=== PATIENT | female | born 1945 | race Caucasian/White ===

== ENCOUNTER 2018-12-07 14:18 | Outpatient (CLI) | payer MEDICARE ==
[~2018-12-07] VITALS: Ht 157.5 cm; Wt 84.4 kg
[2018-12-07] MEDS ORDERED: albuterol 2.5 MG/3 ML nebule NEB PRN (15:15)
== END 2018-12-07 23:59 | disposition home or self-care (01) ==
LOC: RT 14:18
PROVIDERS: ATTEND Internal Medicine Pulmonary Disease
DX: J45.909 Unspecified asthma, uncomplicated (principal); I51.7 Cardiomegaly; G47.33 Obstructive sleep apnea (adult) (pediatric); K21.9 Gastro-esophageal reflux disease without esophagitis; M85.80 Other specified disorders of bone density and structure, unspecified site; Z79.899 Other long term (current) drug therapy; Z87.891 Personal history of nicotine dependence
CPT/HCPCS: 71046; 94010; 94727; 94729

== ENCOUNTER 2023-08-03 11:47 | Emergency (ER) | payer MEDICARE, OTHER ==
[~2023-08-03] VITALS: Ht 154.9 cm; Wt 84.1 kg
[2023-08-03 11:58] VITALS: BP 174/126; PULSE 77; RESP 18; TEMP 97.7; O2SAT 95
[2023-08-03] MEDS ORDERED: cloNIDine 0.1 mg tablet PO ONE (12:45)
[2023-08-03 12:55] LABS: BASOPHILS # (AUTO) 0.1 X10'3 (0-0.2); BASOPHILS % (AUTO) 0.7 % (0-1); EOSINOPHILS # (AUTO) 0.2 X10'3 (0-0.9); HEMATOCRIT 46.5 % (35.0-45.0); HEMOGLOBIN 15.7 g/dl (12.0-16.0); LYMPHOCYTES # (AUTO) 2.7 X10'3 (1.1-4.8); LYMPHOCYTES % (AUTO) 24.3 % (21-51); MEAN CORPUSCULAR HEMOGLOBIN 29.3 PG (27.0-31.0); MEAN CORPUSCULAR HGB CONC 33.8 g/dL (33.0-36.5); MEAN CORPUSCULAR VOLUME 86.9 FL (78-98); MEAN PLATELET VOLUME 8.9 FL (7.4-10.4); MONOCYTES # (AUTO) 0.9 X10'3 (0-0.9); MONOCYTES % (AUTO) 8.1 % (2-12); NEUTROPHILS # (AUTO) 7.2 X10'3 (1.8-7.7); NEUTROPHILS % (AUTO) 64.9 % (42-75); PLATELET COUNT 254 X10'3 (140-440); RED BLOOD COUNT 5.35 X10'6 (4.20-5.60); RED CELL DISTRIBUTION WIDTH 13.8 % (11.5-14.5); WHITE BLOOD COUNT 11.1 X10'3 (4.5-11.0)
[2023-08-03 13:19] LABS: ALBUMIN 3.8 G/DL (3.4-5.0); ANION GAP 9 (8-16); BLOOD UREA NITROGEN 18 MG/DL (7-18); BUN/CREATININE RATIO 20.2 (10.0-20.0); CALCIUM 9.4 MG/DL (8.5-10.1); CHLORIDE 103 MMOL/L (99-107); CREATININE 0.89 MG/DL (0.40-0.90); GLUCOSE 100 MG/DL (70-104); POTASSIUM 3.6 MMOL/L (3.5-5.1); PRO BRAIN NATRIURETIC PEPTIDE 210 PG/ML (0-450); SODIUM 141 MMOL/L (135-145); TOTAL CARBON DIOXIDE 29.1 MMOL/L (24-32); eCRCL 41 ML/MIN; eGFR 62 ML/MIN
== END 2023-08-03 21:20 | disposition left against medical advice (07) ==
LOC: ER 11:48
DX: R07.81 Pleurodynia (principal); R06.02 Shortness of breath; Z53.21 Procedure and treatment not carried out due to patient leaving prior to being seen by health care provider
CPT/HCPCS: 36415; 70450; 71046; 71250; 80048; 83880; 84484; 85025; 93005; 99281

== ENCOUNTER 2023-10-18 02:26 | Emergency (ER) | payer MEDICARE, OTHER ==
[~2023-10-18] VITALS: Ht 154.9 cm; Wt 79.5 kg
[~2023-10-18 02:26] MED LIST: ASPI-1265 PO; CHLO25TA10 PO; CLOP75TA34 PO; LOSA100T58 PO; NEBI5TAB12 PO; OXCA150T14 PO
[2023-10-18] MEDS: haloperidol 5mg tablet PO ONE ×2 (02:54→04:22)
[2023-10-18] MEDS: oxymetazoline 15 ML nasal spray NS ONE (02:55)
[2023-10-18] MEDS: ondansetron 4mg rapidly disintigrating tab PO ONE (02:55)
[2023-10-18] MEDS: tranexamic acid 100mg/ml inj. TP ONE (03:31)
[2023-10-18] MEDS: hyDRALAzine 10mg tablet PO ONE (04:22)
[2023-10-18] MEDS: LIDOcaine 2% Viscous 15ml cup MM ONE ×2 (04:33→06:29)
[2023-10-18] MEDS ORDERED: CLIN150C2 PO (06:29)
[2023-10-18] MEDS ORDERED: tranexamic acid 100mg/ml inj. IV ONE (07:55)
[2023-10-18] MEDS: morphine 2 MG/ML inj. syringe IV ONE (08:11)
[2023-10-18] MEDS: ondansetron/PF 4mg/2ml inj IV ONE (08:11)
[2023-10-18] MEDS: tranexamic acid inj. 800 MG in normal saline 100ml IV soln 92 ML IV ONE (08:30)
[2023-10-18] MEDS: LIDOcaine 1% W/epiNEPHrine 1:100,000 20ml vial SQ ONE (09:02)
[2023-10-18 11:39] LABS: HEMATOCRIT 40.3 % (35.0-45.0); HEMOGLOBIN 13.5 g/dl (12.0-16.0); MEAN CORPUSCULAR HEMOGLOBIN 29.5 PG (27.0-31.0); MEAN CORPUSCULAR HGB CONC 33.4 g/dL (33.0-36.5); MEAN CORPUSCULAR VOLUME 88.5 FL (78-98); PLATELET COUNT 315 X10'3 (140-440); RED BLOOD COUNT 4.56 X10'6 (4.20-5.60); RED CELL DISTRIBUTION WIDTH 14.1 % (11.5-14.5); WHITE BLOOD COUNT 13.5 X10'3 (4.5-11.0)
[2023-10-18] MEDS ORDERED: TRAN650T5 PO (14:25)
[2023-10-18 14:47] VITALS: BP 172/89; PULSE 68; RESP 14; TEMP 98.2; O2SAT 92
== END 2023-10-18 14:49 | disposition home or self-care (01) ==
LOC: ER 02:27
DX: R04.0 Epistaxis (principal); Z79.82 Long term (current) use of aspirin; Z79.899 Other long term (current) drug therapy; Z88.2 Allergy status to sulfonamides
CPT/HCPCS: 30901; 36415; 82948; 85027; 96374; 96375; 99285; A6402; J2270; J2405; J7030; A6449

== ENCOUNTER 2023-12-18 16:58 | Inpatient (IN) | payer MEDICARE, OTHER ==
[~2023-12-18] VITALS: Ht 167.6 cm; Wt 79.0 kg
[~2023-12-18 16:58] MED LIST changes: +AMLO2.5T2 PO; -CHLO25TA10 PO; +CLON0.2T PO; +NEBI20TA6 PO; -NEBI5TAB12 PO; -OXCA150T14 PO
[2023-12-18 17:45] LABS: BASOPHILS # (AUTO) 0.1 X10'3 (0-0.2); BASOPHILS % (AUTO) 0.7 % (0-1); EOSINOPHILS % (AUTO) 0.2 % (0-6); HEMATOCRIT 47.1 % (35.0-45.0); HEMOGLOBIN 15.6 g/dl (12.0-16.0); LYMPHOCYTES # (AUTO) 3.6 X10'3 (1.1-4.8); LYMPHOCYTES % (AUTO) 19.3 % (21-51); MEAN CORPUSCULAR HGB CONC 33.1 g/dL (33.0-36.5); MEAN CORPUSCULAR VOLUME 87.7 FL (78-98); MEAN PLATELET VOLUME 9.6 FL (7.4-10.4); MONOCYTES # (AUTO) 2.3 X10'3 (0-0.9); MONOCYTES % (AUTO) 12.2 % (2-12); NEUTROPHILS # (AUTO) 12.7 X10'3 (1.8-7.7); NEUTROPHILS % (AUTO) 67.6 % (42-75); PLATELET COUNT 218 X10'3 (140-440); RED BLOOD COUNT 5.37 X10'6 (4.20-5.60); RED CELL DISTRIBUTION WIDTH 14.5 % (11.5-14.5); WHITE BLOOD COUNT 18.8 X10'3 (4.5-11.0)
[2023-12-18 17:47] LABS: ALBUMIN 3.6 G/DL (3.4-5.0); ANION GAP 12 (8-16); BLOOD UREA NITROGEN 21 MG/DL (7-18); BUN/CREATININE RATIO 20.6 (10.0-20.0); CALCIUM 9.2 MG/DL (8.5-10.1); CHLORIDE 103 MMOL/L (99-107); CREATININE 1.02 MG/DL (0.40-0.90); GLUCOSE 115 MG/DL (70-104); POTASSIUM 4.1 MMOL/L (3.5-5.1); SODIUM 142 MMOL/L (135-145); eCRCL 43 ML/MIN; eGFR 53 ML/MIN
[2023-12-18 17:51] LABS: APTT 26 SECONDS (22-32); INR 1.1 INR; PROTHROMBIN TIME 11.7 SECONDS (9.0-12.0)
[2023-12-18 18:01] LABS: BILIRUBIN,URINE NEGATIVE (Neg); CLARITY,URINE CLEAR (Clear); COLOR,URINE YELLOW (Yellow); GLUCOSE, URINE NEGATIVE (Neg); KETONES,URINE NEGATIVE (Neg); LEUKOCYTE ESTERASE ,URINE NEGATIVE (Neg); NITRITES, URINE NEGATIVE (Neg); OCCULT BLOOD,URINE SMALL (Neg); PROTEIN,URINE NEGATIVE (Neg); UROBILINOGEN,URINE 0.2 E.U/dL (0.2-1.0)
--- NOTE | 2023-12-18 18:03 | NUR ---
patient felt warm, did a rectal temperature and found her to be 100.6. With this new temperature the patient meets criteria for SIRS.
[2023-12-18 18:05] LABS: UA COLLECTION TYPE OTHER
[2023-12-18 18:06] LABS: AMORPHOUS URATES 1+; BACTERIA,URINE FEW /HPF (Neg); MUCUS STRANDS NONE SEEN /LPF (Neg); SQUAMOUS EPITHELIAL CELL,UR NONE SEEN /LPF (FEW)
--- NOTE | 2023-12-18 19:07 | NUR ---
pt to CT
--- NOTE | 2023-12-18 19:38 | NUR ---
Pt at bedside. Pt immediately recognized . Is able to state who he is and smiled at him. Smile noted to be equal without deficits.
[2023-12-18] MEDS: amLODIPine 5mg tablet PO ONE (20:30)
[2023-12-18] MEDS ORDERED: magnesium sulf-water 2g/50mL 50 ML IV PRN (20:40)
[2023-12-18] MEDS ORDERED: acetaminophen 325mg tablet PO PRN (20:40)
[2023-12-18] MEDS ORDERED: potassium Cl 20 mEq SR tablet PO PRN (20:40)
[2023-12-18] MEDS ORDERED: magnesium hydroxide 30ml (MOM) UD suspension PO PRN (20:40)
[2023-12-18] MEDS ORDERED: magnesium Cl slow-release 64mg tablet PO PRN (20:40)
[2023-12-18] MEDS ORDERED: potassium Cl 40MEQ/1/2NS 520ml 520 ML IV PRN (20:40)
[2023-12-18] MEDS ORDERED: magnesium sulf-water 4G/100mL 100 ML IV PRN (20:40)
[2023-12-18] MEDS ORDERED: mag hydrox/Alum hydrox/simeth 30ml oral suspension PO PRN (20:40)
[2023-12-18 21:45] VITALS: BP 127/98; PULSE 87; RESP 16; TEMP 97.9; O2SAT 94
[2023-12-18] MEDS: ringers solution, lacted 1,000 ML IV ONE (21:45)
[2023-12-18] MEDS: cloNIDine 0.1 mg tablet PO SCH (21:45)
[2023-12-18 21:54] LABS: MAGNESIUM 2.1 MG/DL (1.5-2.4); PHOSPHORUS 3.3 MG/DL (2.3-4.5)
[2023-12-19] VITALS (11 sets, daily range): BP systolic 126–156; BP diastolic 80–110; PULSE 77–89; RESP 14–24; TEMP 96.9–98.2; O2SAT 83–97
[2023-12-19] MEDS: CefTRIAXone/D5W-Rocephin 1gm 50 ML IV SCH (00:11)
[2023-12-19] MEDS: normal saline 1000ml 1,000 ML IV SCH (00:11)
[2023-12-19] MEDS: clopidogrel 75mg tablet PO SCH (00:13)
[2023-12-19] MEDS: atorvastatin 20mg tablet PO SCH (00:16)
[2023-12-19 06:35] LABS: BASOPHILS # (AUTO) 0.1 X10'3 (0-0.2); BASOPHILS % (AUTO) 0.7 % (0-1); EOSINOPHILS % (AUTO) 0.3 % (0-6); HEMATOCRIT 47.7 % (35.0-45.0); HEMOGLOBIN 15.7 g/dl (12.0-16.0); LYMPHOCYTES # (AUTO) 2.7 X10'3 (1.1-4.8); LYMPHOCYTES % (AUTO) 16.3 % (21-51); MEAN CORPUSCULAR HEMOGLOBIN 28.5 PG (27.0-31.0); MEAN CORPUSCULAR VOLUME 86.5 FL (78-98); MEAN PLATELET VOLUME 9.8 FL (7.4-10.4); MONOCYTES # (AUTO) 2.2 X10'3 (0-0.9); MONOCYTES % (AUTO) 13.1 % (2-12); NEUTROPHILS # (AUTO) 11.7 X10'3 (1.8-7.7); NEUTROPHILS % (AUTO) 69.6 % (42-75); PLATELET COUNT 219 X10'3 (140-440); RED BLOOD COUNT 5.51 X10'6 (4.20-5.60); RED CELL DISTRIBUTION WIDTH 14.8 % (11.5-14.5); WHITE BLOOD COUNT 16.8 X10'3 (4.5-11.0)
--- NOTE | 2023-12-19 06:40 | NUR ---
ASSUMED CARE OF PATIENT AT 214 FROM ED AFTER RC'G VERBAL REPORT FROM AMANDA GODFREY. PATIENT UNCOOPERATIVE/NOT ABLE TO FOLLOW COMMANDS FOR NEURO CHECK. MINIMAL IMPAIRMENT WITH FINGER TO NOSE, UNABLE TO HOLD ARMS UP AND MODERATE IMPAIRMENT WITH HEEL/CORBETT TEST. TOOK A LOT OF COAXING AND REPETITION TO HAVE PATIENT PERFORM TASKS. LS FACIAL DROOP NOTED AND RSW AND RAM CAR OPERATOR NOTED. REPORT GIVEN TO EARLY SHIFT RN, JOHNNY AND IS AWARE OF NPO STATUS, BUT DID GET PATIENT TO TAKE PLAVIX LAST NIGHT WITH A SMALL AMOUNT OF APPLESAUCE AND REPEATED ENCOURAGEMENT.
[2023-12-19 06:53] LABS: ALANINE AMINOTRANSFERASE 20 U/L (12-78); ALBUMIN 3.2 G/DL (3.4-5.0); ALBUMIN/GLOBULIN RATIO 0.8 (1.1-1.5); ALKALINE PHOSPHATASE 76 IU/L (46-116); ANION GAP 11 (8-16); ASPARTATE AMINO TRANSFERASE 17 U/L (10-37); BILIRUBIN,TOTAL 0.8 MG/DL (0.1-1.0); BLOOD UREA NITROGEN 24 MG/DL (7-18); BUN/CREATININE RATIO 31.2 (10.0-20.0); CALCIUM 9.1 MG/DL (8.5-10.1); CHLORIDE 103 MMOL/L (99-107); CREATININE 0.77 MG/DL (0.40-0.90); GLUCOSE 120 MG/DL (70-104); POTASSIUM 3.6 MMOL/L (3.5-5.1); SODIUM 140 MMOL/L (135-145); TOTAL CARBON DIOXIDE 25.8 MMOL/L (24-32); TOTAL PROTEIN 7.4 G/DL (6.4-8.2); eCRCL 57 ML/MIN; eGFR 73 ML/MIN
[2023-12-19] MEDS: K and/or MAG REPLACEMENT MC SCH (08:00)
[2023-12-19] MEDS: enoxaparin 40mg/0.4ml syringe SQ SCH (08:46)
[2023-12-19] MEDS: aspirin 81mg tab.chew PO SCH (08:52)
[2023-12-19] MEDS: metoprolol tartrate 50mg tablet PO SCH (08:52)
[2023-12-19] MEDS: losartan 50mg tablet PO SCH (08:53)
--- NOTE | 2023-12-19 09:00 | NUR ---
PATIENT REFUSED SUPPOSITORY AT THIS TIME .
[2023-12-19] MEDS: ondansetron/PF 4mg/2ml inj IV PRN (10:22)
--- NOTE | 2023-12-19 11:24 | NUR ---
PT AT BEDSIDE WHEN I ENTERED ROOM. PTS EYES WERE CLOSED. DID OPEN EYES WHEN NAME CALLED. CALLED ME BY NAME, I HAD VISITED WITH PT 2 DAYS PRIOR DURING STAY HERE. PT IS PALE AND LETHARGIC. ABLE TO MOVE ALL EXT, HOWEVER, NOT LIFT LEFT ARM OR LEG OFF BED WITHOUT ASSISTANCE. GENERALLY WEAK. ON NC AT 3L PT WITH h/O SLEEP APNEA. NIH IS 11. SPOKE WITH DR ALONZO.
--- NOTE | 2023-12-19 12:59 | NUR ---
pATIENT 97% ON 2L NASAL CANNULA WHEN AWAKE. WHEN PATIENT IS SLEEPING PATIENT SPO2 DROPS LOW 83%. PT BACK ON 2L NASAL CANNULA WHILE SLEEPING
--- NOTE | 2023-12-19 16:30 | NUR ---
NOTIFIED MD OF PATIENTS CHANGE IN CONDITION. PT FAILED NURSING BEDSIDE SWALLOW. MD INSTRUCTED PRIMARY RN TO REATTEMPT BEDSIDE SWALLOW. PT FAILED 2ND ATTEMPT AT BEDSIDE SWALLOW. PER MD, PT IS TO BE NPO AND REPEAT CT
--- NOTE | 2023-12-19 17:22 | NUR ---
PER NURSING IMPORT/[facility] SPECIALIST MRI SERVICES ARE AVAILABLE TOMORROW 12/20/23.
--- NOTE | 2023-12-19 19:00 | NUR ---
pt O2 desat to mid 80's with 1L. have pt deep breathe and cough. pt was hard time coughing. o2 fluctuates high 80's to mid 90's with 4L NC.
--- NOTE | 2023-12-19 19:20 | NUR ---
DISCUSSED WITH DR. TODD REGARDING PTS INCREASED O2 DEMANDS AND NPO STATUS AND CONSTIPATION. DR ORDERED CXR, ASPIRIN SUPP AND DULCOLAX.
[2023-12-19] MEDS ORDERED: iohexol 350MG/ML 100ml bottle IV ONE (19:23)
[2023-12-19] MEDS ORDERED: aspirin 300mg supp.rect RC ONE (20:05)
--- NOTE | 2023-12-19 20:20 | NUR ---
PHARMACY NOTIFIED US THAT THERE IS NO ASPIRIN SUPP AVAILABLE. NOTIFIED MD THAT NO ASPIRIN SUPP AND ASKED IF PT HAS METOPROLOL TONIGHT WITH SBP 150'S. NO METOPROLOL NEEDED TONIGHT PER MD.
--- NOTE | 2023-12-19 20:35 | NUR ---
PT WAS ABLE TO TAKE NECTOR THICK WATER WITHOUT COUGHING/CHOKING. ADMINISTERED CRUSHED PLAVIX WITH APPLE SAUCE.
[2023-12-19] MEDS: bisacodyl 10mg suppository rectal RC STA (20:51)
[2023-12-20] VITALS (8 sets, daily range): BP systolic 123–168; BP diastolic 80–106; PULSE 83–89; RESP 15–24; TEMP 97.3–98.6; O2SAT 92–97
[2023-12-20 02:19] LABS: BASOPHILS # (AUTO) 0.1 X10'3 (0-0.2); BASOPHILS % (AUTO) 0.7 % (0-1); EOSINOPHILS # (AUTO) 0.1 X10'3 (0-0.9); EOSINOPHILS % (AUTO) 0.5 % (0-6); HEMATOCRIT 45.1 % (35.0-45.0); LYMPHOCYTES # (AUTO) 1.9 X10'3 (1.1-4.8); LYMPHOCYTES % (AUTO) 13.1 % (21-51); MEAN CORPUSCULAR HEMOGLOBIN 28.9 PG (27.0-31.0); MEAN CORPUSCULAR HGB CONC 33.2 g/dL (33.0-36.5); MEAN CORPUSCULAR VOLUME 87.2 FL (78-98); MONOCYTES # (AUTO) 1.9 X10'3 (0-0.9); MONOCYTES % (AUTO) 12.7 % (2-12); NEUTROPHILS # (AUTO) 10.7 X10'3 (1.8-7.7); PLATELET COUNT 203 X10'3 (140-440); RED BLOOD COUNT 5.17 X10'6 (4.20-5.60); RED CELL DISTRIBUTION WIDTH 14.5 % (11.5-14.5); WHITE BLOOD COUNT 14.7 X10'3 (4.5-11.0)
[2023-12-20 02:48] LABS: ALANINE AMINOTRANSFERASE 21 U/L (12-78); ALBUMIN 2.9 G/DL (3.4-5.0); ALBUMIN/GLOBULIN RATIO 0.7 (1.1-1.5); ALKALINE PHOSPHATASE 71 IU/L (46-116); ANION GAP 11 (8-16); ASPARTATE AMINO TRANSFERASE 17 U/L (10-37); BILIRUBIN,TOTAL 0.7 MG/DL (0.1-1.0); BLOOD UREA NITROGEN 21 MG/DL (7-18); BUN/CREATININE RATIO 24.7 (10.0-20.0); CALCIUM 8.8 MG/DL (8.5-10.1); CHLORIDE 106 MMOL/L (99-107); CREATININE 0.85 MG/DL (0.40-0.90); GLUCOSE 108 MG/DL (70-104); POTASSIUM 3.6 MMOL/L (3.5-5.1); SODIUM 141 MMOL/L (135-145); TOTAL CARBON DIOXIDE 24.4 MMOL/L (24-32); TOTAL PROTEIN 7.1 G/DL (6.4-8.2); eCRCL 52 ML/MIN; eGFR 65 ML/MIN
--- NOTE | 2023-12-20 06:15 | NUR ---
I agree with keyanna Daugherty's assessment and interventions.
[2023-12-20] MEDS: losartan 50mg tablet PO SCH (07:18)
[2023-12-20] MEDS: amLODIPine 5mg tablet PO SCH (07:18)
[2023-12-20] MEDS ORDERED: hyDRALAzine 10mg tablet PO PRN (09:20)
--- NOTE | 2023-12-20 16:15 | NUR ---
Low lissette consult: Pt presents with a low lissette score of 12 per [facility]. Per RN physical assessment pt's skin is intact. Will continue to monitor and make recommendations as appropriate. Addendum: 12/20/23 at [address] Amended: Links added.
--- NOTE | 2023-12-20 18:00 | NUR ---
Report Received from Carolee GODFREY, Assumed care of Pt
[2023-12-21 06:07] LABS: BASOPHILS # (AUTO) 0.1 X10'3 (0-0.2); BASOPHILS % (AUTO) 0.8 % (0-1); EOSINOPHILS # (AUTO) 0.2 X10'3 (0-0.9); EOSINOPHILS % (AUTO) 1.5 % (0-6); HEMATOCRIT 43.4 % (35.0-45.0); HEMOGLOBIN 14.6 g/dl (12.0-16.0); LYMPHOCYTES # (AUTO) 2.2 X10'3 (1.1-4.8); MEAN CORPUSCULAR HEMOGLOBIN 29.7 PG (27.0-31.0); MEAN CORPUSCULAR HGB CONC 33.7 g/dL (33.0-36.5); MEAN CORPUSCULAR VOLUME 88.1 FL (78-98); MEAN PLATELET VOLUME 10.2 FL (7.4-10.4); MONOCYTES # (AUTO) 1.4 X10'3 (0-0.9); MONOCYTES % (AUTO) 12.5 % (2-12); NEUTROPHILS # (AUTO) 7.1 X10'3 (1.8-7.7); NEUTROPHILS % (AUTO) 65.2 % (42-75); PLATELET COUNT 220 X10'3 (140-440); RED BLOOD COUNT 4.92 X10'6 (4.20-5.60); RED CELL DISTRIBUTION WIDTH 14.7 % (11.5-14.5); WHITE BLOOD COUNT 10.8 X10'3 (4.5-11.0)
--- NOTE | 2023-12-21 06:33 | NUR ---
Patient in room [facility]TH[facility] 4016. I have received report from BEKAH Lyons and had the opportunity to ask questions and assume patient care.
[2023-12-21 06:39] LABS: ALANINE AMINOTRANSFERASE 30 U/L (12-78); ALBUMIN 2.7 G/DL (3.4-5.0); ALBUMIN/GLOBULIN RATIO 0.7 (1.1-1.5); ALKALINE PHOSPHATASE 89 IU/L (46-116); ANION GAP 9 (8-16); ASPARTATE AMINO TRANSFERASE 31 U/L (10-37); BILIRUBIN,TOTAL 0.6 MG/DL (0.1-1.0); BLOOD UREA NITROGEN 21 MG/DL (7-18); BUN/CREATININE RATIO 31.8 (10.0-20.0); CALCIUM 8.9 MG/DL (8.5-10.1); CHLORIDE 105 MMOL/L (99-107); CREATININE 0.66 MG/DL (0.40-0.90); GLUCOSE 103 MG/DL (70-104); SODIUM 141 MMOL/L (135-145); TOTAL CARBON DIOXIDE 26.9 MMOL/L (24-32); TOTAL PROTEIN 6.7 G/DL (6.4-8.2); eCRCL 67 ML/MIN; eGFR 87 ML/MIN
[2023-12-21 06:53] VITALS: BP 187/105; PULSE 85; RESP 16; TEMP 97.8; O2SAT 91
--- NOTE | 2023-12-21 07:28 | NUR ---
PAGER ID: [phone] MESSAGE: [id number]-Cori Barajas pt critical K 3.0 Will replace per protocol. Also BP is 187/105 per blue celina cons target bp <220/120. ok to allow permissive htn?- Chirag [phone]
[2023-12-21] MEDS: potassium Cl 20 mEq SR tablet PO PRN (07:38)
--- NOTE | 2023-12-21 07:44 | NUR ---
Received call back from Dr. Shereen hendrickson to give BP meds as permissive HTN is for only 24 hours.
[2023-12-21 07:50] VITALS: RESP 16; O2SAT 91
[2023-12-21] MEDS: losartan 50mg tablet PO SCH (07:58)
[2023-12-21] MEDS: amLODIPine 5mg tablet PO SCH (07:58)
[2023-12-21 10:00] VITALS: BP 144/86; PULSE 80; RESP 18; TEMP 98.4; O2SAT 92
--- NOTE | 2023-12-21 13:40 | NUR ---
PRESSURE ULCER EDUCATION: DEFINITION: A pressure ulcer is an area of skin that breaks down when you stay in one position too long. The constant pressure against the skin reduces the blood flow to that area and the affected tissue dies. CAUSES: "Being bedridden or in a wheelchair "Fragile skin "Having a chronic condition, such as diabetes or vascular disease "Inability to move certain parts of your body without assistance "Older age "Incontinence of urine or stool SYMPTOMS: "A reddened area that DOES NOT turn white when pressed on - this can be the beginning of a pressure ulcer "A blister, deep sore or a crater - these can be advanced pressure ulcers FIRST AID: "Relieve the pressure on this area "Keep the area clean and dry "Call your primary doctor if you see any of the above symptoms "DO NOT massage the area "DO NOT use a donut shaped or ring shaped pillow- these actually interfere with the blood flow and cause complications PREVENTION: "Check for pressure ulcers everyday "Change position at least every two hours to relieve pressure "Use items that help relieve pressure- pillows, sheepskin, foam padding, and powders. "Keep skin clean and dry "Eat healthy well balanced meals "Exercise daily IF YOU SEE ANY OF THESE SYMPTOMS WHILE IN THE HOSPITAL - TELL YOUR NURSE IMMEDIATELY. IF YOU SEE ANY OF THESE SYMPTOMS WHILE AT HOME OR HAVE ANY QUESTIONS OR CONCERNS ABOUT PRESSURE ULCERS - CALL YOUR PRIMARY DOCTOR IMMEDIATELY. Addendum: 12/21/23 at 1340 by Sae Ford RN Amended: Links added.
--- NOTE | 2023-12-21 15:34 | NUR ---
Report called to SONIA Batista at [facility].
--- NOTE | 2023-12-21 15:47 | NUR ---
patient refuses pneumovac states she is current.
[2023-12-21] MEDS: pneumococcal 23-VAL P-sac vacc 25 mcg/0.5ml vial IMVAC ONE (15:54)
--- NOTE | 2023-12-21 17:20 | NUR ---
Patient discharged to [facility] in [facility] with all personal belongings accompanied by [employer] staff and patient's . Patient was alert and oriented in no apparent acute distress at time of dc.
== END 2023-12-21 17:20 | DRG 64 ==
LOC: ER 16:59 → UNDOADMIN 20:32 → ORTHO 4S 20:32
PROVIDERS: ADMIT Internal Medicine Critical Care Medicine; ATTEND Internal Medicine
PROC: B3251ZZ Computerized Tomography (CT Scan) of Bilateral Common Carotid Arteries using Low Osmolar Contrast (ICD-10-PCS; principal; 2023-12-19)
PROC: B32G1ZZ Computerized Tomography (CT Scan) of Bilateral Vertebral Arteries using Low Osmolar Contrast (ICD-10-PCS; 2023-12-19)
PROC: B32R1ZZ Computerized Tomography (CT Scan) of Intracranial Arteries using Low Osmolar Contrast (ICD-10-PCS; 2023-12-19)
PROC: B3281ZZ Computerized Tomography (CT Scan) of Bilateral Internal Carotid Arteries using Low Osmolar Contrast (ICD-10-PCS; 2023-12-19)
PROC: 5A09357 Assistance with Respiratory Ventilation, Less than 24 Consecutive Hours, Continuous Positive Airway Pressure (ICD-10-PCS; 2023-12-20)
DX: I63.9 Cerebral infarction, unspecified (principal); G93.41 Metabolic encephalopathy; N17.0 Acute kidney failure with tubular necrosis; N39.0 Urinary tract infection, site not specified; G82.20 Paraplegia, unspecified; E86.0 Dehydration; I10 Essential (primary) hypertension; Z88.1 Allergy status to other antibiotic agents; Z88.2 Allergy status to sulfonamides; Z88.8 Allergy status to other drugs, medicaments and biological substances; Z79.899 Other long term (current) drug therapy
CPT/HCPCS: 36415; 70450; 70496; 70498; 70544; 70551; 71045; 74176; 80048; 80053; 81001; 83735; 84100; 84145; 85025; 85610; 85730; 87077; 87081; 87088; 87186; 92508; 92616; 93005; 97110; 97161; 97530; 99285; G0378; J0696; J1650; J2405; J7030; Q9967

== ENCOUNTER 2024-01-13 13:58 | Emergency (ER) | payer MEDICARE, OTHER ==
[~2024-01-13] VITALS: Ht 152.4 cm; Wt 88.0 kg
[2024-01-13 15:05] LABS: BASOPHILS # (AUTO) 0.1 X10'3 (0-0.2); BASOPHILS % (AUTO) 0.7 % (0-1); EOSINOPHILS # (AUTO) 0.2 X10'3 (0-0.9); EOSINOPHILS % (AUTO) 2.7 % (0-6); HEMATOCRIT 42.4 % (35.0-45.0); LYMPHOCYTES # (AUTO) 1.7 X10'3 (1.1-4.8); LYMPHOCYTES % (AUTO) 18.3 % (21-51); MEAN CORPUSCULAR HGB CONC 33.1 g/dL (33.0-36.5); MEAN CORPUSCULAR VOLUME 84.7 FL (78-98); MEAN PLATELET VOLUME 9.5 FL (7.4-10.4); MONOCYTES # (AUTO) 1.2 X10'3 (0-0.9); NEUTROPHILS # (AUTO) 6.1 X10'3 (1.8-7.7); NEUTROPHILS % (AUTO) 65.3 % (42-75); PLATELET COUNT 239 X10'3 (140-440); RED BLOOD COUNT 5.01 X10'6 (4.20-5.60); RED CELL DISTRIBUTION WIDTH 15.1 % (11.5-14.5); WHITE BLOOD COUNT 9.3 X10'3 (4.5-11.0)
[2024-01-13 15:24] LABS: D-DIMER 1.27 MG/L FEU (0-0.50)
[2024-01-13 15:33] LABS: ALBUMIN 2.9 G/DL (3.4-5.0); ANION GAP 9 (8-16); BLOOD UREA NITROGEN 15 MG/DL (7-18); BUN/CREATININE RATIO 18.5 (10.0-20.0); CHLORIDE 103 MMOL/L (99-107); CREATININE 0.81 MG/DL (0.40-0.90); GLUCOSE 113 MG/DL (70-104); MAGNESIUM 2.1 MG/DL (1.5-2.4); POTASSIUM 3.6 MMOL/L (3.5-5.1); PRO BRAIN NATRIURETIC PEPTIDE 259 PG/ML (0-450); SODIUM 138 MMOL/L (135-145); TOTAL CARBON DIOXIDE 26.5 MMOL/L (24-32); eCRCL 42 ML/MIN; eGFR 69 ML/MIN
[2024-01-13] MEDS ORDERED: iohexol 350MG/ML 100ml bottle IV ONE (16:08)
[2024-01-13] MEDS: normal saline 1000ML IV soln IVB ONE (16:24)
[2024-01-13 17:20] VITALS: PULSE 59
[2024-01-13 18:28] VITALS: BP 153/90; RESP 16; TEMP 98.7; O2SAT 96
== END 2024-01-13 19:00 | disposition home or self-care (01) ==
LOC: ER 13:59
DX: R55 Syncope and collapse (principal); Z88.2 Allergy status to sulfonamides; Z79.899 Other long term (current) drug therapy; Z79.82 Long term (current) use of aspirin
CPT/HCPCS: 36415; 71045; 71275; 80048; 83735; 83880; 84484; 85025; 85379; 93005; 96360; 99285; A4615; J7030; Q9967

== ENCOUNTER 2025-03-26 10:02 | Day surgery (SDC) | payer MEDICARE, OTHER ==
[2025-03-26] VITALS (7 sets, daily range): BP systolic 123–173; BP diastolic 71–125; PULSE 67–93; RESP 10–15; TEMP 97.2; O2SAT 94–99
[~2025-03-26] VITALS: Ht 152.4 cm; Wt 74.8 kg
[~2025-03-26 10:02] MED LIST changes: +AMLO-708 PO; -AMLO2.5T2 PO; +ATOR-2 PO; -CLON0.2T PO; +CLON0.2T37 PO; -CLOP75TA34 PO; +ESCI5TAB16 PO; -LOSA100T58 PO; -NEBI20TA6 PO; +NITR50CA PO; +PANT-47 PO; +TICA60TA PO; +VALS160T2 PO; +VALS80TA32 PO; +simethicone 40mg/0.6ml oral drops 15ml PO ONE
[2025-03-26] MEDS: ringers solution, lacted 1,000 ML IV SCH (11:14)
[2025-03-26] MEDS ORDERED: propofol inj 20 ML IV ONE ×2 (13:14)
== END 2025-03-26 14:30 | disposition home or self-care (01) ==
LOC: PAS 10:02
PROVIDERS: ATTEND Internal Medicine Gastroenterology
DX: Z12.11 Encounter for screening for malignant neoplasm of colon (principal); I10 Essential (primary) hypertension; E78.5 Hyperlipidemia, unspecified; I48.0 Paroxysmal atrial fibrillation; J45.909 Unspecified asthma, uncomplicated; G47.33 Obstructive sleep apnea (adult) (pediatric); E66.9 Obesity, unspecified; M79.7 Fibromyalgia; G62.9 Polyneuropathy, unspecified; Z86.0100 Personal history of colon polyps, unspecified; Z86.73 Personal history of transient ischemic attack (TIA), and cerebral infarction without residual deficits; Z87.891 Personal history of nicotine dependence; Z79.02 Long term (current) use of antithrombotics/antiplatelets; Z79.82 Long term (current) use of aspirin; Z79.899 Other long term (current) drug therapy; Z98.818 Other dental procedure status; Z98.890 Other specified postprocedural states; Z68.32 Body mass index [BMI] 32.0-32.9, adult; Z88.2 Allergy status to sulfonamides; Z88.1 Allergy status to other antibiotic agents; Z88.8 Allergy status to other drugs, medicaments and biological substances; Z80.0 Family history of malignant neoplasm of digestive organs; Z82.49 Family history of ischemic heart disease and other diseases of the circulatory system
CPT/HCPCS: A4615; G0105; J2704; J7120; Z7512; Z7610; 45378; A4620